=== PATIENT | female | born 1995 | race African-American/Black ===

== ENCOUNTER 2017-01-11 11:06 | Emergency (ER) | payer OTHER ==
[~2017-01-11] VITALS: Ht 170.2 cm; Wt 68.9 kg
[2017-01-11] MEDS ORDERED: ZOFR4TAB3 PO (11:35)
[2017-01-11] MEDS ORDERED: NS 1,000 ML IV ONE (12:45)
[2017-01-11] MEDS ORDERED: METOCLOPRAMIDE INJ 10MG/2ML VIAL (J2765) IV ONE (12:45)
[2017-01-11 13:33] LABS: ALBUMIN 4.1 GM/DL (3.2-5.2); ALBUMIN/GLOBULIN RATIO 1.11 (1.00-1.93); ALKALINE PHOSPHATASE 49 U/L (45-117); ALT/SGPT 16 U/L (12-78); AMYLASE 77 U/L (25-115); ANION GAP 11 MEQ/L (8-16); AST/SGOT 12 U/L (15-37); BILIRUBIN,DIRECT 0.2 MG/DL (0.0-0.2); BILIRUBIN,TOTAL 0.6 MG/DL (0.2-1.0); BLOOD UREA NITROGEN 11 MG/DL (7-18); CALCIUM LEVEL 9.5 MG/DL (8.5-10.1); CARBON DIOXIDE LEVEL 24 MEQ/L (21-32); CHLORIDE LEVEL 101 MEQ/L (98-107); GLOMERULAR FILTRATION RATE > 60.0 (>60); GLUCOSE, FASTING 83 MG/DL (70-105); SODIUM LEVEL 136 MEQ/L (136-145); TOTAL PROTEIN 7.8 GM/DL (6.4-8.2)
[2017-01-11 13:47] LABS: BASO % 0.4 % (0.0-1.0); EOS # 0.1 K/mm3 (0.0-0.50); EOS % 0.9 % (0.0-3.0); LARGE UNSTAINED CELL # 0.1 K/mm3 (0.0-0.4); LARGE UNSTAINED CELL % 1.3 % (0.0-4.0); LYMPH # 2.1 K/mm3 (1.5-6.5); LYMPH % 28.8 % (24.0-44.0); MEAN CORPUSCULAR HGB CONC 33.9 g/dl (32.0-36.5); MEAN CORPUSCULAR VOLUME 88.5 fl (80.0-96.0); MONO # 0.2 K/mm3 (0.0-0.8); MONO % 2.9 % (0.0-5.0); NEUTROPHILS # 4.7 K/mm3 (1.8-7.7); NEUTROPHILS % 65.7 % (36.0-66.0); PLATELET COUNT, AUTOMATED 261 k/mm3 (150-450); RED CELL DISTRIBUTION WIDTH 11.6 % (11.5-14.5); WHITE BLOOD COUNT 7.2 K/mm3 (4.0-10.0)
--- NOTE | 2017-01-11 13:53 | REP ---
Clinical: Lower abdominal pain for dating and viability. Technique: Transabdominal first trimester obstetrical ultrasound. Findings: Ultrasound examination demonstrates a single live early intrauterine . Gestational sac with yolk sac and pole identified. CRL of 2.3 cm corresponds to 9 weeks 0 days gestational age with ISABELLE 08/16/2017. heart rate equals 171 beats per minute. No gross abnormalities are identified. Impression: Single live early intrauterine at 9 weeks 0 days gestational age. Complete anatomical assessment should be performed at 19-20 weeks. Signed by Will Hollis MD 01/11/2017 01:45 P
[2017-01-11] MEDS ORDERED: REGL10TA6 PO (15:32)
[2017-01-11 15:40] VITALS: BP 104/58
== END 2017-01-11 15:42 | disposition home or self-care (01) ==
LOC: M ED 12:52
DX: O21.8 Other vomiting complicating pregnancy (principal); Z3A.09 9 weeks gestation of pregnancy
CPT/HCPCS: 76801; 80048; 80076; 81001; 82150; 83690; 84702; 85025; 87086; 96374; 99282; J2765

== ENCOUNTER 2017-02-27 08:40 | Emergency (ER) | payer OTHER ==
[~2017-02-27] VITALS: Ht 170.2 cm; Wt 68.9 kg
[~2017-02-27 08:40] MED LIST: REGL10TA6 PO; ZOFR4TAB3 PO
[2017-02-27 09:24] LABS: BASO % 0.3 % (0.0-1.0); EOS # 0.2 K/mm3 (0.0-0.50); EOS % 2.6 % (0.0-3.0); LARGE UNSTAINED CELL # 0.1 K/mm3 (0.0-0.4); LARGE UNSTAINED CELL % 0.8 % (0.0-4.0); LYMPH # 1.7 K/mm3 (1.5-6.5); MEAN CORPUSCULAR HEMOGLOBIN 31.4 pg (27.0-33.0); MEAN CORPUSCULAR HGB CONC 34.4 g/dl (32.0-36.5); MEAN CORPUSCULAR VOLUME 91.3 fl (80.0-96.0); MONO # 0.2 K/mm3 (0.0-0.8); MONO % 3.1 % (0.0-5.0); NEUTROPHILS # 4.3 K/mm3 (1.8-7.7); NEUTROPHILS % 67.2 % (36.0-66.0); PLATELET COUNT, AUTOMATED 239 k/mm3 (150-450); WHITE BLOOD COUNT 6.4 K/mm3 (4.0-10.0)
[2017-02-27 10:11] LABS: ANION GAP 9 MEQ/L (8-16); BLOOD UREA NITROGEN 11 MG/DL (7-18); CALCIUM LEVEL 8.4 MG/DL (8.5-10.1); CARBON DIOXIDE LEVEL 27 MEQ/L (21-32); CHLORIDE LEVEL 102 MEQ/L (98-107); CREATININE FOR GFR 0.69 MG/DL (0.55-1.02); GLOMERULAR FILTRATION RATE > 60.0 (>60); GLUCOSE, FASTING 77 MG/DL (70-105); HCG, SERUM QUANTITATIVE 37247 MIU/ML; POTASSIUM SERUM 3.5 MEQ/L (3.5-5.1); SODIUM LEVEL 138 MEQ/L (136-145)
--- NOTE | 2017-02-27 10:52 | REP ---
OB ULTRASOUND: Real-time sonographic evaluation of the gravid uterus performed utilizing transabdominal and endovaginal technique. There is a single living intrauterine gestation with estimated gestational age of 15 weeks 6 days with EDC 08/15/2017. Today's measurements indicate appropriate growth. BPD 33 mm 16 weeks 2 days, 67th percentile HC 117 mm 15 weeks 5 days, 48th percentile AC 98 mm 15 weeks 6 days, 51st percentile FL 20 mm 15 weeks 6 days, 49th percentile HC/AC ratio 1.20 within normal range. heart rate 141 beats per minute. position is breech. Placenta is anterior with no abruption. It is somewhat low lying. Transvaginal images demonstrate a cervical length of 3.2 cm and the placental tip is 1 cm from the internal cervical os. The amniotic fluid appears within normal limits. The ovaries appear normal in size and echotexture with no torsion, blood flow seen in each ovary with duplex Doppler evaluation. Signed by Filippo Wheat MD 02/27/2017 07:45 P
[2017-02-27 11:24] VITALS: BP 96/56
== END 2017-02-27 11:26 | disposition home or self-care (01) ==
LOC: M ED 09:19
DX: O26.892 Other specified pregnancy related conditions, second trimester (principal); R10.2 Pelvic and perineal pain; Z3A.15 15 weeks gestation of pregnancy

== ENCOUNTER 2018-09-29 15:37 | Emergency (ER) | payer OTHER ==
[2018-09-29 16:08] LABS: BASO % 0.6 % (0.0-1.0); EOS # 0.1 10^3/uL (0.0-0.50); EOS % 0.8 % (0.0-3.0); HEMATOCRIT 38.9 % (36.0-47.0); HEMOGLOBIN 12.9 g/dl (12.0-15.5); IMMATURE GRANULOCYTE % 0.3 % (0-3.0); LYMPH # 2.7 10^3/uL (1.5-6.5); LYMPH % 37.5 % (24.0-44.0); MEAN CORPUSCULAR HEMOGLOBIN 29.9 pg (27.0-33.0); MEAN CORPUSCULAR HGB CONC 33.2 g/dl (32.0-36.5); MEAN CORPUSCULAR VOLUME 90.3 fl (80.0-96.0); MONO # 0.4 10^3/uL (0.0-0.8); MONO % 5.5 % (0.0-5.0); NEUTROPHILS # 3.9 10^3/uL (1.8-7.7); NEUTROPHILS % 55.3 % (36.0-66.0); PLATELET COUNT, AUTOMATED 259 10^3/uL (150-450); RED BLOOD COUNT 4.31 10^6/uL (4.00-5.40); RED CELL DISTRIBUTION WIDTH 12.2 % (11.5-14.5); WHITE BLOOD COUNT 7.1 10^3/uL (4.0-10.0)
[2018-09-29 16:44] LABS: HCG, SERUM QUANTITATIVE 325 MIU/ML
== END 2018-09-29 17:59 | disposition home or self-care (01) ==
LOC: M ED 15:37
DX: O20.0 Threatened abortion (principal); O34.80 Maternal care for other abnormalities of pelvic organs, unspecified trimester
CPT/HCPCS: 76801

== ENCOUNTER 2019-07-05 13:44 | Emergency (ER) | payer OTHER ==
[~2019-07-05] VITALS: Ht 172.7 cm; Wt 71.4 kg
[~2019-07-05 13:44] MED LIST changes: +ZOFR4TAB14 PO; -ZOFR4TAB3 PO
[2019-07-05] MEDS ORDERED: MOTR200T44 PO (13:56)
[2019-07-05] MEDS ORDERED: QC A650T3 PO (13:56)
[2019-07-05] MEDS ORDERED: CHLO1.4S2 MT (13:56)
[2019-07-05] MEDS ORDERED: IBUPROFEN 800 MG TAB PO ONE (14:15)
[2019-07-05 15:00] LABS: INFLUENZA A AMPLIFICATION NEGATIVE (NEGATIVE); INFLUENZA B AMPLIFICATION POSITIVE (NEGATIVE)
[2019-07-05] MEDS ORDERED: OSEL75CA PO (15:19)
[2019-07-05 15:22] VITALS: BP 122/77
[2019-07-05] MEDS ORDERED: OSELTAMIVIR PHOSPHATE 75 MG CAP (TAMIFLU) PO ONE (15:30)
== END 2019-07-05 15:29 | disposition home or self-care (01) ==
LOC: M ED 13:44
DX: J10.1 Influenza due to other identified influenza virus with other respiratory manifestations (principal); Z20.828 Contact with and (suspected) exposure to other viral communicable diseases

== ENCOUNTER 2020-07-27 08:05 | Emergency (ER) | payer OTHER ==
[~2020-07-27] VITALS: Ht 172.7 cm; Wt 79.3 kg
[~2020-07-27 08:05] MED LIST changes: +CHLO1.4S2 MT; +MOTR200T44 PO; +OSEL75CA PO; +QC A650T3 PO
[2020-07-27 09:04] LABS: BASO % 0.5 % (0.0-1.0); HEMATOCRIT 41.1 % (36.0-47.0); MEAN CORPUSCULAR HEMOGLOBIN 29.2 pg (27.0-33.0); MEAN CORPUSCULAR HGB CONC 31.6 g/dl (32.0-36.5); MEAN CORPUSCULAR VOLUME 92.4 fl (80.0-96.0); MONO # 0.2 10^3/uL (0.0-0.8); MONO % 5.9 % (0.0-5.0); NEUTROPHILS # 1.6 10^3/uL (1.5-8.5); NEUTROPHILS % 41.3 % (36.0-66.0); PLATELET COUNT, AUTOMATED 294 10^3/uL (150-450); RED BLOOD COUNT 4.45 10^6/uL (4.00-5.40); WHITE BLOOD COUNT 3.9 10^3/uL (4.0-10.0)
[2020-07-27 09:12] LABS: APPEARANCE, URINE HAZY (CLEAR); BACTERIA, URINE AUTO 1+ (NEGATIVE); BILIRUBIN, URINE AUTO NEGATIVE (NEGATIVE); BLOOD, URINE BLOOD 2+ (NEGATIVE); COLOR, URINE YELLOW (YELLOW); GLUCOSE, URINE (UA) AUTO NEGATIVE (NEGATIVE); KETONE, URINE AUTO NEGATIVE (NEGATIVE); LEUKOCYTE ESTERASE, URINE AUTO NEGATIVE (NEGATIVE); MUCUS, URINE SMALL (NEGATIVE); NITRITE, URINE AUTO NEGATIVE (NEGATIVE); PROTEIN, URINE AUTO NEGATIVE (NEGATIVE); RBC, URINE AUTO 3 /HPF (0-3); SPECIFIC GRAVITY URINE AUTO 1.023 (1.002-1.035); SQUAMOUS EPITHELIAL CELL UR AU 11 /HPF (0-6); UROBILINOGEN, URINE AUTO 0.2 mg/dL (0.0-2.0); WBC, URINE AUTO 1 /HPF (0-3)
[2020-07-27 09:26] LABS: ALBUMIN 4.1 GM/DL (3.2-5.2); ALT/SGPT 22 U/L (12-78); BILIRUBIN,DIRECT 0.2 MG/DL (0.0-0.2); BILIRUBIN,TOTAL 0.7 MG/DL (0.2-1.0); BLOOD UREA NITROGEN 16 MG/DL (7-18); CALCIUM LEVEL 8.8 MG/DL (8.5-10.1); CARBON DIOXIDE LEVEL 29 MEQ/L (21-32); CHLORIDE LEVEL 107 MEQ/L (98-107); CREATININE FOR GFR 1.05 MG/DL (0.55-1.30); GLOMERULAR FILTRATION RATE > 60.0 (>60); GLUCOSE, FASTING 83 MG/DL (70-100); LIPASE 76 U/L (73-393); POTASSIUM SERUM 3.9 MEQ/L (3.5-5.1); SODIUM LEVEL 141 MEQ/L (136-145); TOTAL PROTEIN 7.6 GM/DL (6.4-8.2)
[2020-07-27 10:59] LABS: HCG, SERUM QUALITATIVE POSITIVE (NEGATIVE)
[2020-07-27 11:10] LABS: CHLAMYDIA DNA AMPLIFICATION NEGATIVE (NEGATIVE); GC DNA AMPLIFICATION NEGATIVE (NEGATIVE)
[2020-07-27 12:41] VITALS: BP 120/76
--- NOTE | 2020-07-27 13:34 | REPVR ---
PROCEDURE INFORMATION: Exam: US First Trimester, Transabdominal and US , Transvaginal Exam date and time: 07/27/2020 11:42 AM Age: 25 years old Clinical indication: Lmp or gestational age (in weeks): 2 weeks 1 day; Other: Vaginal discharge, pelvic cramping; ; Additional info: Pelvic cramping, vag d/c, positive hcg TECHNIQUE: Imaging protocol: Real-time transabdominal obstetrical ultrasound of the maternal pelvis and a first trimester , less than 14 weeks 0 days, with image documentation. Transvaginal imaging was used for better evaluation of the fetus and adnexa. COMPARISON: No relevant prior studies available. FINDINGS: Gestation: No IUP is identified. Differential diagnosis includes early IUP, completed , ectopic . MATERNAL: Uterus: Uterus 8.3 x 4.6 x 5.6 cm. The endometrial thickness is 1.2 cm. Cervix: There is a nabothian cyst. Right adnexa: There is a 1.6 cm hyperechoic mass in the right adnexa distinct from the right ovary. There is a 4.4 cm complex cyst within the right adnexa. There is a 1.8 cm nonspecific hypoechoic structure within the right adnexa. Right ovary 5.5 x 3.8 x 3.8 cm. Left adnexa: Left ovary 3.2 x 1.9 x 1.9 cm. Intraperitoneal space: There is a moderate amount of free pelvic fluid. IMPRESSION: 1. No IUP is identified. Differential diagnosis includes early IUP, completed , ectopic . Followup serial beta hCGs and ultrasound is recommended. 2. There is a 1.6 cm hyperechoic mass in the right adnexa distinct from the right ovary. There is a 4.4 cm complex cyst within the right adnexa. There is a 1.8 cm nonspecific hypoechoic structure within the right adnexa. These structures are nonspecific. Close clinical and imaging followup is recommended. 3. There is a moderate amount of free pelvic fluid. Electronically signed by: Wilmar Moore On 07/27/2020 13:33:59 PM
[2020-07-29 09:25] LABS: HEPATITIS B SURFACE ANTIBODY POSITIVE (POSITIVE)
[2020-07-29 09:36] LABS: HEPATITIS B SURFACE ANTIGEN NEGATIVE (NEGATIVE)
[2020-07-29 10:04] LABS: HEPATITIS C VIRUS ABY INDEX 0.1 INDEX (<0.8)
[2020-07-30 16:08] LABS: HSV-1 DNA Negative (Negative); HSV-2 DNA Negative (Negative)
== END 2020-07-27 14:04 | disposition home or self-care (01) ==
LOC: M ED 08:05
DX: O20.0 Threatened abortion (principal); O34.81 Maternal care for other abnormalities of pelvic organs, first trimester; R19.09 Other intra-abdominal and pelvic swelling, mass and lump; O26.891 Other specified pregnancy related conditions, first trimester; N88.8 Other specified noninflammatory disorders of cervix uteri; N83.291 Other ovarian cyst, right side; Z3A.01 Less than 8 weeks gestation of pregnancy

== ENCOUNTER → 2020-07-29 | Outpatient (CLI) | payer OTHER | LOC: M LAB 11:58 | PROVIDERS: ATTEND Physician Assistant | DX: Z34.80 Encounter for supervision of other normal pregnancy, unspecified trimester (principal); Z3A.00 Weeks of gestation of pregnancy not specified ==